=== PATIENT | male | born 1960 | race Caucasian/White ===

== ENCOUNTER → 2019-03-08 | Outpatient (CLI) | payer BC ==
--- NOTE | 2019-03-08 19:46 | CONS ---
CONSULTATION DATE OF SERVICE: 03/08/2019 58-year-old gentleman has been evaluated in the sleep center for possible obstructive sleep apnea-hypopnea syndrome. HISTORY OF PRESENT ILLNESS/SLEEP WAKE EVALUATION: Patient's usual sleep schedule on working days from 9 p.m. until 4:30 a.m. and on weekends from around 9 p.m. until 5 a.m. No problems with falling asleep, although patient has TV set in bedroom. He usually sleeps on the side position with his , and according to her, he has extremely loud snoring and also grinding teeth during the sleep. The patient wakes up from sleep around 3 times with 2 episodes of nocturia. No history of hypnagogic hallucinations, sleep paralysis or cataplexy. In the morning, patient wakes up tired, feels significantly sleepy during the day. [place] Sleepiness Scale is in very high range of 16. The patient may take 2 naps during the day, usually after work around 4:30 or 8 pm. PAST MEDICAL HISTORY: Positive for hypertension and bicuspid aortic valve replaced with the mechanical valve, hypothyroidism, hyperlipidemia. PAST SURGICAL HISTORY: As already mentioned aortic valve replacement with a mechanical valve, hydrocele surgery on the scrotum. Synthroid, metoprolol, losartan, warfarin, atorvastatin, bupropion. SOCIAL HISTORY: Negative for smoking or using alcohol. FAMILY HISTORY: Hypertension, heart problems. REVIEW OF SYSTEMS: Awakenings from sleep, sleepiness during the day. PHYSICAL EXAM: A gentleman without distress, BP 176/77, HR 56, RR 18, height 5 feet 9 inches, weight 227.2, body mass index 33.6, temperature 98.0, oxygen saturation at room air 98%. Oropharynx: Extremely low position of soft palate. Mallampati 4. NOSE: Symmetric. Wide neck 18 inches in circumference. Heart: Systolic murmur sounds soft mechanical valve on aorta. NECK: Supple, no JVD. Thyroid is not palpable. LUNGS: Clear to percussion and to auscultation. Good air exchange. No wheezing or rhonchi. HEART: S1, S2 regular. No murmurs, gallops, or rubs. ABDOMEN: Slightly obese. Soft and nontender. Bowel sounds are present. No organomegaly appreciated. EXTREMITIES: No clubbing or cyanosis. ESCORT PATIENTS: Awake, alert, and oriented X3. Cranial nerves 2 to 7 intact. There is no fasciculation or atrophy. noted. No focal deficits observed. IMPRESSION: 1. Loud snoring, multiple awakenings from sleep with nocturia, extremely low position of soft palate, Mallampati 4, significant excessive daytime sleepiness. [place] Sleepiness Scale is 16. Wide neck, obstructive sleep apnea-hypopnea syndrome. 2. Status post bicuspid aortic valve replacement with a mechanical valve. 3. Obesity, body mass index 33.6. 4. Hypertension. 5. Hypothyroidism. 6. Hyperlipidemia. 7. Status post surgery for hydrocele removed from scrotum. PLAN: 1. Polysomnography for evaluation of patient's breathing during sleep. 2. CPAP/BiPAP titration if sleep study confirms obstructive sleep apnea-hypopnea syndrome. 3. Preferable position during sleep on the side. 4. No driving if patient feels any sleepiness. 5. I will see patient for follow up visit to explain results of testing and following plan. Thank you very much for referring this patient for consultation. Sincerely, Shayne Alex MD, PhD, FAASM Diplomat of [employer] [facility] [id number] / IJN: [id number] /
== END | disposition home or self-care (01) ==
LOC: SLEEP 15:05
PROVIDERS: ATTEND Internal Medicine
DX: G47.33 Obstructive sleep apnea (adult) (pediatric) (principal); R35.1 Nocturia; E66.9 Obesity, unspecified; I10 Essential (primary) hypertension; E03.9 Hypothyroidism, unspecified; E78.5 Hyperlipidemia, unspecified; Z68.33 Body mass index [BMI] 33.0-33.9, adult; Z95.4 Presence of other heart-valve replacement; Z98.890 Other specified postprocedural states
CPT/HCPCS: 99211

== ENCOUNTER → 2019-09-22 | Day surgery (SDC) | payer BC ==
[2019-09-20 15:44] VITALS: BMI 33.0
[~2019-09-22] MED LIST: LACTATED RINGERS 1,000 ML IV SCH; LIDOCAINE 1% (10MG/ML) FOR IV START INTRADERMA PRN; PROPOFOL 10 MG/ML 20 ML VIAL IV ONE
[2019-09-22 10:48] VITALS: TEMP 98.6
--- NOTE | 2019-09-22 11:39 | P.PCN ---
Date of Procedure: 09/22/19 Procedure(s) Performed: BRIEF HISTORY: Patient is a 59-year-old pleasant white male scheduled for an elective colonoscopy as a part of evaluation of positive cologuard PROCEDURE PERFORMED: Colonoscopy with snare polypectomy. PREOPERATIVE DIAGNOSIS: Positive cologuard. IV sedation per Anesthesia. PROCEDURE: After informed consent was obtained, the patient, was brought into the endoscopy unit. IV sedation was administered by Anesthesia under continuous monitoring. Digital rectal examination was normal. Initially the Olympus CF-160 flexible video colonoscope was then inserted in the rectum, gradually advanced into the cecum without any difficulty. Careful examination was performed as the scope was gradually being withdrawn. Ileocecal valve and the appendiceal orifice were visualized and appeared normal. Prep was excellent. Mucosa of the cecum, appeared normal. In the ascending colon there was a 7 mm polyp that was removed by snare polypectomy. Retroflexion was unremarkable. Polyp removed by snare polypectomy. In the transverse colon there was a 5 mm and 7 mm polyp removed by snare polypectomy. Rest of ascending colon, transverse colon, descending colon, sigmoid colon, and rectum appeared normal. Retroflexion was performed in the rectum and no lesions were seen. The patient tolerated the procedure well. IMPRESSION: 7 mm ascending colon polyp status post polypectomy 1 cm hepatic flexure polyp status post polypectomy 5 mm and 7 mm transverse colon polyp status post snare Polypectomy RECOMMENDATIONS: Findings of this examination were discussed with the patient as well as his family. He was advised to follow with the biopsy results. If the biopsy shows an adenoma he can have a repeat colonoscopy in 3 years. He was advised to resume Coumadin tonight.
[2019-09-22 12:01] VITALS: BP 135/76; PULSE 50; RESP 16
== END ==
LOC: ORWHC2ENDO 10:15
PROVIDERS: ATTEND Internal Medicine Gastroenterology
DX: D12.2 Benign neoplasm of ascending colon (principal); D12.3 Benign neoplasm of transverse colon; I10 Essential (primary) hypertension; I38 Endocarditis, valve unspecified; E78.5 Hyperlipidemia, unspecified; Z91.030 Bee allergy status; Z79.01 Long term (current) use of anticoagulants; Z79.890 Hormone replacement therapy; Z79.899 Other long term (current) drug therapy
CPT/HCPCS: 88305; 45385; J2704

== ENCOUNTER → 2020-07-05 | Outpatient (CLI) | payer BC ==
--- NOTE | 2020-07-05 13:01 | US ---
EXAMINATION TYPE: US scrotum with doppler. Grayscale and color Doppler Duplex imaging performed of rodolfo hayward scrotum. DATE OF EXAM: 07/05/2020 COMPARISON: NONE CLINICAL HISTORY: Bilateral testicular swelling N50.9. scrotal edema for 2 days. History of hydrocele removal 2006 EXAM MEASUREMENTS: TESTICLES: Right Testicle: 5.2 x 2.8 x 3.4 cm Left Testicle: 4.9 x 2.6 x 2.8 cm EPIDIDYMIS HEAD: Right Epididymis: 1.2 cm tubular ectasia of the rete testis Left Epididymis: 1.3 cm . Tubular ectasia of the rete testis Doppler performed to assess for testicular vascularity; good bilateral color flow and waveforms are s een. There is no evidence of testicular torsion. Presence of varicocele: Varicocele on the left. There is a large amount of scrotal edema. There is a moderate hydrocele with fluid inferior to the right testicle. IMPRESSION: 1. 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 2. Moderate right hydrocele. 3. There is bilateral scrotal edema. 4. Moderate left varicocele.
== END | disposition home or self-care (01) ==
LOC: RADUSWWP 12:02
PROVIDERS: ATTEND Family Medicine
DX: N43.3 Hydrocele, unspecified (principal); I86.1 Scrotal varices
CPT/HCPCS: 76870; 93975